=== PATIENT | female | born 1960 | race Caucasian/White ===

== ENCOUNTER 2019-09-06 01:44 | Observation (INO) | payer OTHER ==
--- NOTE | 2019-09-06 02:43 | PDOC ---
Attending Attestation - Resident Resident Name: Mark Anthony Aguilera - ED Attending Attestation I have performed the following: I have examined & evaluated the patient, The case was reviewed & discussed with the resident, I agree w/resident's findings & plan - HPI HPI: 09/06/19 02:34 see resident hpi - Physicial Exam PE: 09/06/19 02:35 agree with resident exam - Medical Decision Making 09/06/19 03:13 59-year-old female with history of coronary artery disease complaining of intermittent left-sided chest pressure as well as left posterior leg pain EKG shows no acute ST segment elevations Plan for chest x-ray, labs and admission to hospitalist service Patient will likely require lower extremity Doppler in the morning
[2019-09-06 02:49] VITALS: BMI 25.7
[2019-09-06] MEDS ORDERED: ASPIRIN 325 MG TABLET PO ONE (03:03)
[2019-09-06 03:08] LABS: BASO % 0.6 % (0-2.0); EOS % 1.9 % (0-4.5); HEMATOCRIT 40.5 % (32.4-45.2); HEMOGLOBIN 13.3 GM/dL (10.7-15.3); LYMPH % 32.4 % (8-40); MCH 28.2 pg (25.7-33.7); MCHC 32.8 g/dl (32.0-36.0); MEAN CELL VOLUME 85.9 fl (80-96); MONO % 5.5 % (3.8-10.2); NEUT % 59.6 % (42.8-82.8); PLATELET COUNT 486 K/MM3 (134-434); RBC 4.72 M/mm3 (3.60-5.2)
--- NOTE | 2019-09-06 03:11 | PDOC ---
History of Present Illness - General Chief Complaint: Chest Pain Stated Complaint: CHEST PAIN Time Seen by Provider: 09/06/19 02:33 History Source: Patient Exam Limitations: Language Barrier - History of Present Illness Initial Comments: History is limited bc patient speaks Kazakh - Kazakh speaking nurse used for translation Elisa Valencia is a 59 yo Kazakh speaking F w a pmh of CAD s/p stent, HTN and HIV who presents to the [facility] er with 2 weeks of left sided chest discomfort and left leg pain. She states that her chest pain feels both sharp and heavy. She states that her pain is worse whenever she does physical activity and is associated with radiation to her neck. She also endorses nausea when the pain comes on but denies any emesis. The patient states that the pain occasionally radiates down both her left arm and her left leg. She is also concerned because she has left leg pain whenever she performs any physical activity. She states that when she relaxes her legs don't hurt but if she walks too much her left leg becomes painful. PCP: Not on staff PSH: Stent Social Hx: Former smoker Allergies: NKA, NKDA Past History - Past Medical History Allergies/Adverse Reactions: Allergies Allergy/AdvReac Type Severity Reaction Status Date / Time No Known Allergies Allergy Verified 09/06/19 02:49 Home Medications: Ambulatory Orders levoFLOXacin [Levaquin -] 750 mg PO DAILY #7 tablet 07/08/15 Amoxicillin/Potassium Clav [Augmentin 875-125 Tablet] 1 each PO BID #14 tablet 07/20/15 - Immunization History Immunization Up to Date: Yes - Psycho Social/Smoking Cessation Hx Smoking Status: No Smoking History: Never smoked Number of Cigarettes Smoked Daily: 0 Information on smoking cessation initiated: No Hx Alcohol Use: No Drug/Substance Use Hx: No Substance Use Type: None Review of Systems - Review of Systems Able to Perform ROS?: Yes Comments:: CONSTITUTIONAL: Absent: fever, no chills, no fatigue EYES: Absent: visual changes ENT: Absent: ear pain, no sore throat CARDIOVASCULAR: Present: Chest pain Absent: no palpitations RESPIRATORY: Present: SOB Absent: cough GI: Present: Nausea Absent: abdominal pain, no vomiting, no constipation, no diarrhea GENITOURINARY: Absent: dysuria, no frequency, no hematuria MUSKULOSKELETAL: Present: Arthralgia Absent: back pain, no myalgia SKIN: Absent: rash NEURO: Absent: headache *Physical Exam - Vital Signs Last Vital Signs Temp Pulse Resp BP Pulse Ox 98.5 F 67 20 128/79 100 09/06/19 01:45 09/06/19 01:45 09/06/19 01:45 09/06/19 01:45 09/06/19 01:45 - Physical Exam GENERAL: Well-appearing, well-nourished. Mild distress. HEENT: Normocephalic, atraumatic. PERRL, EOM intact. CARDIOVASCULAR: Normal S1, S2. Regular rate and rhythm. PULMONARY: No evidence of respiratory distress. Lungs clear to auscultation bilaterally. No wheezing, rales or rhonchi. ABDOMEN: Soft, non-distended, non-tender. EXTREMITIES: The left leg is mildly tender to palpation. There is no calf tenderness or swelling. Normal ROM in all four extremities. No gross deformities. SKIN: Warm, dry. No rash NEUROLOGICAL: No focal neurological deficits. Heart Score/ECG Review - History History: Moderately suspicious - Electrocardiogram EKG: Normal - Age Age: 45-65 - Risk Factors Risk Factors Heart Score: Yes Hx Hypertension, Yes Smoking History, Yes Positive family hx of cardiac disease Based on the list above the patient has:: >/=3 risk factors or Hx atherosclerotic disease - Troponin Troponin: </= normal limit - Score Heart Score - Total: 4 - ECG Intrepretation Rhythm: Regular Rhythm - Lena Lena: Normal - P and WI Prominent R with upright T in V1 (true posterior IA): No Comment:: WI 172 - QRS Poor R Wave Progression: No Q Wave Present: No Comment:: QRS 64 - ST and T Early Repolarization: No Non Specific ST-T Wave changes: No Flattened T Waves: No Prolonged Q-T Interval: No Comment:: QTc - 406 - ECG Impressions Normal ECG: Yes Non-specific ST Elevation: No Ischemic Changes: No Bradycardia: No ED Treatment Course - LABORATORY CBC & Chemistry Diagram: 09/06/19 02:50 09/06/19 02:50 - ADDITIONAL ORDERS Additional order review: 09/06/19 02:50 RBC 4.72 MCV 85.9 MCHC 32.8 RDW 15.0 MPV 8.0 Neutrophils % 59.6 Lymphocytes % 32.4 Monocytes % 5.5 Eosinophils % 1.9 Basophils % 0.6 Medical Decision Making - Medical Decision Making Elisa Valencia is a 59 yo Kazakh speaking F w a pmh of CAD s/p stent, HTN and HIV who presents to the [facility] er with 2 weeks of left sided chest discomfort and left leg pain. She states that her chest pain feels both sharp and heavy. She states that her pain is worse whenever she does physical activity and is associated with radiation to her neck. She also endorses nausea when the pain comes on but denies any emesis. The patient states that the pain occasionally radiates down both her left arm and her left leg. She is also concerned because she has left leg pain whenever she performs any physical activity. She states that when she relaxes her legs don't hurt but if she walks too much her left leg becomes painful. Vital Signs Temp Pulse Resp BP Pulse Ox 98.5 F 67 20 128/79 100 09/06/19 01:45 09/06/19 01:45 09/06/19 01:45 09/06/19 01:45 09/06/19 01:45 DDx IBNLT: ACS/IA, arrythmia, electrolyte/metabolic disturbance, DVT/PE, Pneumothorax, PNA MDM: Patient endorses chest pain w exertion, radiation, assocation with nausea and has a HEART score of 4 Plan: Labs + Dimer, CXR, EKG, Admit Tele Obs for chest pain Labs: Dimer normal. Labs otherwise unremarkable and WNL. CXR: No acute pathology Disposition: Tele Obs for chest pain workup Discharge - Discharge Information Problems reviewed: Yes Clinical Impression/Diagnosis: Chest pain Qualifiers: Chest pain type: unspecified Qualified Code(s): R07.9 - Chest pain, unspecified Condition: Stable - Admission Yes - Follow up/Referral - Patient Discharge Instructions - Post Discharge Activity
[2019-09-06 03:22] LABS: INR 0.98 (0.83-1.09); PROTHROMBIN TIME (PATIENT) 11.6 SEC (9.7-13.0)
[2019-09-06 03:31] LABS: ALBUMIN 3.3 g/dl (3.4-5.0); BILIRUBIN,TOTAL 0.2 mg/dL (0.2-1); BLOOD UREA NITROGEN 13.3 mg/dL (7-18); CALCIUM 7.7 mg/dL (8.5-10.1); CREATININE 0.5 mg/dL (0.55-1.3); POTASSIUM 3.7 mmol/L (3.5-5.1)
[2019-09-06] MEDS ORDERED: ASPIRIN 325 MG ENTERIC COATED TABLET (FP) ONE (04:01)
--- NOTE | 2019-09-06 09:04 | HP ---
CHIEF COMPLAINT: Left leg Pain x 2 weeks and chest pain x 1 day. PCP: Jesus HISTORY OF PRESENT ILLNESS: Pt is a 59 y/o F with a significant past medical history of CAD s/p 1 stent, HIV (on Biktarvy), and HTN who presented to [facility] due to left lower extremity pain as well as chest pain x 1 day duration. Leg pain is worse with activity and relieved with rest. Pain spans from left mid thigh to her calf. Pain is reproducible with deep palpation. Chest pain commenced 1 day ago, pain is described as sharp and radiates to the left side of her neck. Pain is not related to inspiration and is not reproducible with deep palpation. Pt states she has experienced these symptoms before but did not seek professional medical treatment. Denies shortness of breath, N/V, or LOC. ER course was notable for: (1) 1st Trop negative (2) EKG no ST-T wave abnormalities (3) Allergies No Known Allergies Allergy (Verified 09/06/19 02:49) HOME MEDICATIONS: Home Medications Medication Instructions Recorded Aspirin [ASA -] 81 mg PO DAILY 09/06/19 Bictegrav/Emtricit/Tenofov Ala 1 each PO 09/06/19 [Biktarvy 50-200-25 mg Tablet] Ergocalciferol (Vitamin D2) 50,000 unit PO 09/06/19 [Vitamin D2] Metoprolol Succinate 25 mg PO 09/06/19 Pravastatin Sodium [Pravachol (Nf)] 40 mg PO 09/06/19 REVIEW OF SYSTEMS CONSTITUTIONAL: Absent: fever, chills, diaphoresis, generalized weakness, malaise, loss of appetite, weight change HEENT: Absent: rhinorrhea, nasal congestion, throat pain, throat swelling, difficulty swallowing, mouth swelling, ear pain, eye pain, visual changes CARDIOVASCULAR: PRESENT chest pain RESPIRATORY: Absent: cough, shortness of breath, dyspnea with exertion, orthopnea, wheezing, stridor, hemoptysis GASTROINTESTINAL: Absent: abdominal pain, abdominal distension, nausea, vomiting, diarrhea, constipation, melena, hematochezia GENITOURINARY: Absent: dysuria, frequency, urgency, hesitancy, hematuria, flank pain, genital pain MUSCULOSKELETAL: Absent: myalgia, arthralgia, joint swelling, back pain, neck pain SKIN: Absent: rash, itching, pallor HEMATOLOGIC/IMMUNOLOGIC: Absent: easy bleeding, easy bruising, lymphadenopathy, frequent infections ENDOCRINE: Absent: unexplained weight gain, unexplained weight loss, heat intolerance, cold intolerance NEUROLOGIC: Absent: headache, focal weakness or paresthesias, dizziness, unsteady gait, seizure, mental status changes, bladder or bowel incontinence PSYCHIATRIC: Absent: anxiety, depression, suicidal or homicidal ideation, hallucinations. PHYSICAL EXAMINATION Vital Signs - 24 hr 09/06/19 09/06/19 01:45 06:34 Temperature 98.5 F Pulse Rate 67 Pulse Rate [ 67 Left Apical] Respiratory 20 19 Rate Blood Pressure 128/79 Blood Pressure 128/74 [Right Arm] O2 Sat by Pulse 100 100 Oximetry (%) GENERAL: NAD HEAD: AT/NC EYES: EOMI Sclera Clear EARS, NOSE, THROAT: MMM NECK: Spple LUNGS: CTA /l HEART: RRR, S1S2. Chest wall not tender to deep palpation ABDOMEN: Soft, NDNT MUSCULOSKELETAL: FROM LOWER EXTREMITIES: No CCE NEUROLOGICAL: Cranial nerves II-XII intact. PSYCHIATRIC: Cooperative. Good eye contact. Appropriate mood and affect. SKIN: Warm, dry, normal turgor, no rashes or lesions noted, normal capillary refill. Laboratory Results - last 24 hr 09/06/19 09/06/19 09/06/19 02:50 02:50 02:50 WBC 7.0 RBC 4.72 Hgb 13.3 Hct 40.5 MCV 85.9 MCH 28.2 MCHC 32.8 RDW 15.0 Plt Count 486 H D MPV 8.0 Absolute Neuts (auto) 4.2 Neutrophils % 59.6 Lymphocytes % 32.4 Monocytes % 5.5 Eosinophils % 1.9 Basophils % 0.6 Nucleated RBC % 0 PT with INR INR PTT (Actin FS) 34.0 D-Dimer Sodium Potassium Chloride Carbon Dioxide Anion Gap BUN Creatinine Est GFR (CKD-EPI)AfAm Est GFR (CKD-EPI)NonAf Random Glucose Calcium Total Bilirubin AST ALT Alkaline Phosphatase Creatine Kinase 72 Troponin I < 0.02 Total Protein Albumin 09/06/19 09/06/19 09/06/19 02:50 02:50 03:00 WBC RBC Hgb Hct MCV MCH MCHC RDW Plt Count MPV Absolute Neuts (auto) Neutrophils % Lymphocytes % Monocytes % Eosinophils % Basophils % Nucleated RBC % PT with INR 11.60 INR 0.98 PTT (Actin FS) D-Dimer 342 Sodium 144 Potassium 3.7 Chloride 112 H Carbon Dioxide 25 Anion Gap 7 L BUN 13.3 Creatinine 0.5 L Est GFR (CKD-EPI)AfAm 124.52 Est GFR (CKD-EPI)NonAf 107.44 Random Glucose 75 Calcium 7.7 L Total Bilirubin 0.2 AST 19 ALT 19 Alkaline Phosphatase 89 Creatine Kinase Troponin I Total Protein 7.0 Albumin 3.3 L ASSESSMENT/PLAN: Pt is a 59 y/o F with a significant past medical history of CAD s/p 1 stent, HIV (on Biktarvy), and HTN who presented to [facility] due to left lower extremity pain as well as chest pain x 1 day duration. #Chest Pain-r/o ACS -EKG unremarkable. -Trop negative. Will trend -Cardiology Consult -Echocardiogram to assess for any wall motion abnormalities -Tele monitoring -Nuclear Stress Test -Will resume home Metoprolol, ASA and Pravastatin #HIV -Resume Biktarvy #Leg lower extremity pain -Venous Duplex of left lower extremity to assess for any DVT #FEN No standing Fluids Monitor Electrolytes Sodium Controlled Diet #DVT ppx: HEP Sq TID #Dispo: Tele Obs Visit type - Emergency Visit Emergency Visit: Yes ED Registration Date: 09/06/19 Care time: The patient presented to the Emergency Department on the above date and was hospitalized for further evaluation of their emergent condition. - New Patient This patient is new to me today: Yes Date on this admission: 09/06/19 - Critical Care Critical Care patient: No ATTENDING PHYSICIAN STATEMENT I saw and evaluated the patient. I reviewed the resident's note and discussed the case with the resident. I agree with the resident's findings and plan as documented. SUBJECTIVE: OBJECTIVE: ASSESSMENT AND PLAN:
[2019-09-06] MEDS ORDERED: HEPARIN NA (PORCINE) 5,000 UNITS/ML 1ML VIAL ONE (09:40)
[2019-09-06] MEDS ORDERED: ASPIRIN 81 MG CHEWABLE TABLETS ONE (09:40)
[2019-09-06] MEDS ORDERED: ATORVASTATIN CA 10 MG TABLET (FP) ONE (09:40)
--- NOTE | 2019-09-06 09:57 | EKG ---
Test Reason : Blood Pressure : / mmHG Vent. Rate : 068 BPM Atrial Rate : 068 BPM P-R Int : 172 ms QRS Dur : 064 ms QT Int : 382 ms P-R-T Axes : 067 019 045 degrees QTc Int : 406 ms NORMAL SINUS RHYTHM NORMAL ECG WHEN COMPARED WITH ECG OF 15-MAY-2014 10:08, NO SIGNIFICANT CHANGE WAS FOUND Confirmed by LAMAR PIEDRA MD ([id number]) on 09/06/2019 9:56:59 AM Referred By: Confirmed By:LAMAR PIEDRA MD
[2019-09-06] MEDS ORDERED: BICTEGRAV/EMTRICIT/TENOFOV (BIKTARVY) 50-200-25 MG TABLET PO SCH (10:00)
[2019-09-06] MEDS ORDERED: HEPARIN NA (PORCINE) 5,000 UNITS/ML 1ML VIAL SQ SCH (10:00)
[2019-09-06] MEDS ORDERED: ASPIRIN 81 MG CHEWABLE TABLETS PO SCH (10:00)
[2019-09-06] MEDS ORDERED: metoPROLOL SUCCINATE 25 MG TAB.SR.24H (FP) PO SCH (10:00)
[2019-09-06] MEDS ORDERED: REGADENOSON 0.4 MG/5 ML PRE-FILLED SYRINGE IVPUSH ONE (10:15)
--- NOTE | 2019-09-06 15:05 | ECHO ---
Name: MARICEL MARTINEZ Exam:Adult Echocardiogram Study Date: 09/06/2019 10:50 AM Age: 59 yrs Reason For Study: lvf Height: 62 in Weight: 140 lb BSA: 1.6 m2 MMode/2D Measurements & Calculations IVSd: 0.85 cm Ao root diam: 2.4 cm LVIDd: 4.3 cm LA dimension: 2.3 cm LVIDs: 2.6 cm LVPWd: 0.78 cm EDV(Teich): 83.3 ml LVOT diam: 2.0 cm ESV(Teich): 25.4 ml LAV (MOD-bp): 31.7 ml Doppler Measurements & Calculations MV E max raymond: 81.5 cm/sec Ao V2 max: 108.6 cm/sec MV A max raymond: 71.8 cm/sec Ao max P.7 mmHg MV E/A: 1.1 MV dec time: 0.25 sec LUKASZ(V,D): 2.7 cm2 LV V1 max P.5 mmHg MR max raymond: 432.9 cm/sec LV V1 max: 94.1 cm/sec MR max P.9 mmHg TR max raymond: 230.8 cm/sec PA V2 max: 81.4 cm/sec TR max P.4 mmHg PA max P.7 mmHg Med Peak E' Raymond: 7.7 cm/sec PI Vmax: 112.7 cm/sec Med E/e': 10.6 Lat Peak E' Raymond: 11.1 cm/sec Lat E/e': 7.3 Procedure A two-dimensional transthoracic echocardiogram with color flow and Doppler was performed. Left Ventricle The left ventricular size, thickness and function are normal. The left ventricular ejection fraction is normal. Left Ventricular Filling pattern is normal for age. The left ventricular wall motion is durga l. Right Ventricle The right ventricle is normal in size and function. Atria Normal left and right atrial size and function. Mitral Valve There is mild mitral valve thickening. There is no mitral valve stenosis. There is trace to mild mitr al regurgitation. Tricuspid Valve There is mild tricuspid valve thickening. There is no tricuspid stenosis. There is moderate tricuspid regurgitation. Right ventricular systolic pressure is normal. Aortic Valve The aortic valve is normal in structure and function. No hemodynamically significant valvular aortic stenosis. No aortic regurgitation is present. Pulmonic Valve The pulmonic valve is not well visualized. There is no pulmonic valvular stenosis. Mild pulmonic valv ular regurgitation. Great Vessels The aortic root is normal size. Pericardium/Pleura There is no pericardial effusion. Interpretation Summary The left ventricular size, thickness and function are normal The left ventricular ejection fraction is normal. The left ventricular wall motion is normal. There is moderate tricuspid regurgitation. Right ventricular systolic pressure is normal. Mild pulmonic valvular regurgitation. Left Ventricular Filling pattern is normal for age. There is trace to mild mitral regurgitation. MD Chris Desai 09/06/2019 03:04 PM
--- NOTE | 2019-09-06 16:06 | CON.CARD ---
Consult Consult Specialty:: cardiology Reason for Consultation:: chest pain - History of Present Illness History of Present Illness: 59 F HIV with back pain and knee pain. Mild chest pain was noted. ECG and cardiac enzymes were negative. She already had echo and stress and results are normal . Feeling better. - History Source History Provided By: Patient Limitations to Obtaining History: No Limitations - Alcohol/Substance Use Hx Alcohol Use: No - Smoking History Smoking history: Never smoked Aproximately how many cigarettes per day: 0 Home Medications - Allergies Allergies/Adverse Reactions: Allergies Allergy/AdvReac Type Severity Reaction Status Date / Time No Known Allergies Allergy Verified 09/06/19 02:49 - Home Medications Home Medications: Ambulatory Orders Aspirin [ASA -] 81 mg PO DAILY 09/06/19 Bictegrav/Emtricit/Tenofov Ala [Biktarvy 50-200-25 mg Tablet] 1 each PO Ergocalciferol (Vitamin D2) [Vitamin D2] 50,000 unit PO 09/06/19 Metoprolol Succinate 25 mg PO 09/06/19 Pravastatin Sodium [Pravachol (Nf)] 40 mg PO 09/06/19 Review of Systems - Review of Systems Constitutional: reports: No Symptoms Eyes: reports: No Symptoms HENT: reports: No Symptoms Neck: reports: No Symptoms Cardiovascular: reports: No Symptoms Respiratory: reports: No Symptoms Gastrointestinal: reports: No Symptoms Genitourinary: reports: No Symptoms Breasts: reports: No Symptoms Reported Musculoskeletal: reports: No Symptoms Vital Signs: Vital Signs Temperature 98.5 F 09/06/19 01:45 Pulse Rate 67 09/06/19 06:34 Respiratory Rate 19 09/06/19 06:34 Blood Pressure 128/74 09/06/19 06:34 O2 Sat by Pulse Oximetry (%) 100 09/06/19 06:34 Constitutional: Yes: Well Nourished, No Distress Eyes: Yes: Conjunctiva Clear, EOM Intact HENT: Yes: Atraumatic, Normocephalic Neck: Yes: Supple, Trachea Midline Respiratory: Yes: Regular, CTA Bilaterally Gastrointestinal: Yes: Normal Bowel Sounds, Soft Cardiovascular: Yes: Regular Rate and Rhythm JVD: No Carotid Bruit: No PMI: Non-Displaced Heart Sounds: Yes: S1, S2 Murmur: No: Systolic Murmur, Diastolic Murmur Edema: No - Other Data Labs, Other Data: CBC, BMP 09/06/19 02:50 09/06/19 02:50 INR, PTT INR 0.98 (0.83-1.09) 09/06/19 02:50 Troponin, BNP 09/06/19 09/06/19 02:50 10:12 Troponin I < 0.02 < 0.02 Troponin, BNP 09/06/19 09/06/19 02:50 10:12 Troponin I < 0.02 < 0.[address] T change.s Echo: Report Reviewed Problem List - Problems (1) Chest pain Code(s): R07.9 - CHEST PAIN, UNSPECIFIED Qualifiers: Chest pain type: unspecified Qualified Code(s): R07.9 - Chest pain, unspecified Assessment/Plan Atypical CP with negative CV workup. Pt feels better and wants to go home. Consider discharge.
[2019-09-06 17:13] VITALS: BP 127/72; PULSE 71; TEMP 98.6
--- NOTE | 2019-09-06 19:21 | PN ---
Teaching Attending Note Name of Resident: Isidro Marquez ATTENDING PHYSICIAN STATEMENT I reviewed the resident's note and discussed the case with the resident. I agree with the resident's findings and plan as documented. SUBJECTIVE: Patient left the hospital without being seen and examined by me. OBJECTIVE: Vital Signs Temperature 98.6 F 09/06/19 17:12 Pulse Rate 71 09/06/19 17:12 Respiratory Rate 18 09/06/19 17:12 Blood Pressure 127/72 09/06/19 17:12 O2 Sat by Pulse Oximetry (%) 99 09/06/19 17:12 CBCD WBC 7.0 K/mm3 (4.0-10.0) 09/06/19 02:50 RBC 4.72 M/mm3 (3.60-5.2) 09/06/19 02:50 Hgb 13.3 GM/dL (10.7-15.3) 09/06/19 02:50 Hct 40.5 % (32.4-45.2) 09/06/19 02:50 MCV 85.9 fl (80-96) 09/06/19 02:50 MCHC 32.8 g/dl (32.0-36.0) 09/06/19 02:50 RDW 15.0 % (11.6-15.6) 09/06/19 02:50 Plt Count 486 K/MM3 (134-434) H D 09/06/19 02:50 MPV 8.0 fl (7.5-11.1) 09/06/19 02:50 CMP Sodium 144 mmol/L (136-145) 09/06/19 02:50 Potassium 3.7 mmol/L (3.5-5.1) 09/06/19 02:50 Chloride 112 mmol/L (98-107) H 09/06/19 02:50 Carbon Dioxide 25 mmol/L (21-32) 09/06/19 02:50 Anion Gap 7 MMOL/L (8-16) L 09/06/19 02:50 BUN 13.3 mg/dL (7-18) 09/06/19 02:50 Creatinine 0.5 mg/dL (0.55-1.3) L 09/06/19 02:50 Random Glucose 75 mg/dL (74-106) 09/06/19 02:50 Calcium 7.7 mg/dL (8.5-10.1) L 09/06/19 02:50 Total Bilirubin 0.2 mg/dL (0.2-1) 09/06/19 02:50 AST 19 U/L (15-37) 09/06/19 02:50 ALT 19 U/L (13-61) 09/06/19 02:50 Alkaline Phosphatase 89 U/L (45-117) 09/06/19 02:50 Total Protein 7.0 g/dl (6.4-8.2) 09/06/19 02:50 Albumin 3.3 g/dl (3.4-5.0) L 09/06/19 02:50 CARDIAC ENZYMES Creatine Kinase 72 U/L (26-192) 09/06/19 02:50 Troponin I < 0.02 ng/ml (0.00-0.05) 09/06/19 10:12 Home Medications Medication Instructions Recorded Aspirin [ASA -] 81 mg PO DAILY 09/06/19 Bictegrav/Emtricit/Tenofov Ala 1 each PO 09/06/19 [Biktarvy 50-200-25 mg Tablet] Ergocalciferol (Vitamin D2) 50,000 unit PO 09/06/19 [Vitamin D2] Metoprolol Succinate 25 mg PO 09/06/19 Pravastatin Sodium [Pravachol (Nf)] 40 mg PO 09/06/19 ASSESSMENT AND PLAN: #acute chest Pain-r/o ACS, 2 sets of troponin is negative , EKG NSR rate of 68, no ST elevation or depression . 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
--- NOTE | 2019-09-06 19:42 | DS ---
Physical Exam: SUBJECTIVE: Patient seen and examined OBJECTIVE: Vital Signs Period Temp Pulse Resp BP Sys/Zhang Pulse Ox Last 24 Hr 98.5 F-98.6 F 67-71 18-20 127-128/72-79 99-100 PHYSICAL EXAM GENERAL: The patient is awake, alert, and fully oriented, in no acute distress. HEAD: Normal with no signs of trauma. EYES: PERRL, extraocular movements intact, sclera anicteric, conjunctiva clear. ENT: Ears normal, nares patent, oropharynx clear without exudates, moist mucous membranes. NECK: Trachea midline, full range of motion, supple. LUNGS: Breath sounds equal, clear to auscultation bilaterally, no wheezes, no crackles, no accessory muscle use. HEART: Regular rate and rhythm, S1, S2 without murmur, rub or gallop. ABDOMEN: Soft, nontender, nondistended, normoactive bowel sounds, no guarding, no rebound, no hepatosplenomegaly, no masses. EXTREMITIES: 2+ pulses, warm, well-perfused, no edema. NEUROLOGICAL: Cranial nerves II through XII grossly intact. Normal speech, gait not observed. PSYCH: Normal mood, normal affect. SKIN: Warm, dry, normal turgor, no rashes or lesions noted. LABS Laboratory Results - last 24 hr 09/06/19 09/06/19 09/06/19 02:50 02:50 02:50 WBC 7.0 RBC 4.72 Hgb 13.3 Hct 40.5 MCV 85.9 MCH 28.2 MCHC 32.8 RDW 15.0 Plt Count 486 H D MPV 8.0 Absolute Neuts (auto) 4.2 Neutrophils % 59.6 Lymphocytes % 32.4 Monocytes % 5.5 Eosinophils % 1.9 Basophils % 0.6 Nucleated RBC % 0 PT with INR INR PTT (Actin FS) 34.0 D-Dimer Sodium Potassium Chloride Carbon Dioxide Anion Gap BUN Creatinine Est GFR (CKD-EPI)AfAm Est GFR (CKD-EPI)NonAf Random Glucose Calcium Total Bilirubin AST ALT Alkaline Phosphatase Creatine Kinase 72 Troponin I < 0.02 Total Protein Albumin 09/06/19 09/06/19 09/06/19 02:50 02:50 03:00 WBC RBC Hgb Hct MCV MCH MCHC RDW Plt Count MPV Absolute Neuts (auto) Neutrophils % Lymphocytes % Monocytes % Eosinophils % Basophils % Nucleated RBC % PT with INR 11.60 INR 0.98 PTT (Actin FS) D-Dimer 342 Sodium 144 Potassium 3.7 Chloride 112 H Carbon Dioxide 25 Anion Gap 7 L BUN 13.3 Creatinine 0.5 L Est GFR (CKD-EPI)AfAm 124.52 Est GFR (CKD-EPI)NonAf 107.44 Random Glucose 75 Calcium 7.7 L Total Bilirubin 0.2 AST 19 ALT 19 Alkaline Phosphatase 89 Creatine Kinase Troponin I Total Protein 7.0 Albumin 3.3 L 09/06/19 10:12 WBC RBC Hgb Hct MCV MCH MCHC RDW Plt Count MPV Absolute Neuts (auto) Neutrophils % Lymphocytes % Monocytes % Eosinophils % Basophils % Nucleated RBC % PT with INR INR PTT (Actin FS) D-Dimer Sodium Potassium Chloride Carbon Dioxide Anion Gap BUN Creatinine Est GFR (CKD-EPI)AfAm Est GFR (CKD-EPI)NonAf Random Glucose Calcium Total Bilirubin AST ALT Alkaline Phosphatase Creatine Kinase Troponin I < 0.02 Total Protein Albumin HOSPITAL COURSE: Date of Admission:09/06/19 Date of Discharge: 09/06/19 Discharge Summary Problems reviewed: Yes Reason For Visit: CHEST PAIN Condition: Stable - Instructions Referrals: Judd Restrepo MD [Staff Physician] - 1 Week Disposition: ELOPED - Home Medications Comprehensive Discharge Medication List: Ambulatory Orders Aspirin [ASA -] 81 mg PO DAILY 09/06/19 Bictegrav/Emtricit/Tenofov Ala [Biktarvy 50-200-25 mg Tablet] 1 each PO Ergocalciferol (Vitamin D2) [Vitamin D2] 50,000 unit PO 09/06/19 Metoprolol Succinate 25 mg PO 09/06/19 Pravastatin Sodium [Pravachol (Nf)] 40 mg PO 09/06/19
[2019-09-06] MEDS ORDERED: ATORVASTATIN CA 10 MG TABLET (FP) PO SCH (22:00)
--- NOTE | 2019-09-07 08:25 | DS ---
Physical Exam: SUBJECTIVE: Patient seen and examined OBJECTIVE: Vital Signs Period Temp Pulse Resp BP Sys/Zhang Pulse Ox Last 24 Hr 98.6 F 71 18 127/72 99 PHYSICAL EXAM GENERAL: The patient is awake, alert, and fully oriented, in no acute distress. HEAD: Normal with no signs of trauma. EYES: PERRL, extraocular movements intact, sclera anicteric, conjunctiva clear. ENT: Ears normal, nares patent, oropharynx clear without exudates, moist mucous membranes. NECK: Trachea midline, full range of motion, supple. LUNGS: Breath sounds equal, clear to auscultation bilaterally, no wheezes, no crackles, no accessory muscle use. HEART: Regular rate and rhythm, S1, S2 without murmur, rub or gallop. ABDOMEN: Soft, nontender, nondistended, normoactive bowel sounds, no guarding, no rebound, no hepatosplenomegaly, no masses. EXTREMITIES: 2+ pulses, warm, well-perfused, no edema. NEUROLOGICAL: Cranial nerves II through XII grossly intact. Normal speech, gait not observed. PSYCH: Normal mood, normal affect. SKIN: Warm, dry, normal turgor, no rashes or lesions noted. LABS Laboratory Results - last 24 hr 09/06/19 10:12 Troponin I < 0.02 HOSPITAL COURSE: Date of Admission:09/06/19 Date of Discharge: 09/07/19 Discharge Summary Problems reviewed: Yes Reason For Visit: CHEST PAIN Condition: Stable - Instructions Referrals: Judd Restrepo MD [Staff Physician] - 1 Week Disposition: ELOPED - Home Medications Comprehensive Discharge Medication List: Ambulatory Orders Aspirin [ASA -] 81 mg PO DAILY 09/06/19 Bictegrav/Emtricit/Tenofov Ala [Biktarvy 50-200-25 mg Tablet] 1 each PO Ergocalciferol (Vitamin D2) [Vitamin D2] 50,000 unit PO 09/06/19 Metoprolol Succinate 25 mg PO 09/06/19 Pravastatin Sodium [Pravachol (Nf)] 40 mg PO 09/06/19 ATTENDING PHYSICIAN STATEMENT I saw and evaluated the patient. I reviewed the resident's note and discussed the case with the resident. I agree with the resident's findings and plan as documented. SUBJECTIVE: OBJECTIVE: ASSESSMENT AND PLAN:
== END 2019-09-06 17:15 | disposition left against medical advice (07) ==
LOC: JER 01:44 → JERBED 05:08
PROVIDERS: ADMIT Internal Medicine; ATTEND Internal Medicine
PROC: 3E013GC Introduction of Other Therapeutic Substance into Subcutaneous Tissue, Percutaneous Approach (ICD-10-PCS; principal; 2019-09-06)
DX: R07.9 Chest pain, unspecified (principal); I25.10 Atherosclerotic heart disease of native coronary artery without angina pectoris; I10 Essential (primary) hypertension; Z95.5 Presence of coronary angioplasty implant and graft; Z21 Asymptomatic human immunodeficiency virus [HIV] infection status; Z87.891 Personal history of nicotine dependence; Z82.49 Family history of ischemic heart disease and other diseases of the circulatory system
CPT/HCPCS: 36415; 71045-TC-FY; 78452-TC; 80053; 82550; 84484; 85025; 85379; 85610; 85730; 93005; 93010; 93017; 93306-TC; 93971-TC; 96372; 99285-25; A9502; G0378; J1644

== ENCOUNTER 2022-04-23 18:51 | Emergency (ER) | payer OTHER ==
[2022-04-23 19:12] VITALS: BMI 24.7
[2022-04-23 21:18] LABS: HEMATOCRIT 39.9 % (32.4-45.2); HEMOGLOBIN 13.1 GM/dL (10.7-15.3); MCH 28.1 pg (25.7-33.7); MCHC 32.9 g/dl (32.0-36.0); MEAN CELL VOLUME 85.4 fl (80-96); MEAN PLT VOLUME 7.7 fl (7.5-11.1); PLATELET COUNT 581 10^3/uL (134-434); RBC 4.68 M/mm3 (3.60-5.2); RDW 14.7 % (11.6-15.6); WHITE BLOOD COUNT 7.4 K/mm3 (4.0-10.0)
[2022-04-23 21:34] LABS: ALBUMIN 4.2 g/dl (3.4-5.0); BLOOD UREA NITROGEN 10.4 mg/dL (7-18); CALCIUM 9.1 mg/dL (8.5-10.1); MAGNESIUM 2.5 mg/dL (1.8-2.4)
[2022-04-23 21:37] LABS: CREATININE 0.7 mg/dL (0.55-1.3)
[2022-04-23 21:39] LABS: BILIRUBIN,TOTAL 0.4 mg/dL (0.2-1); TOT PROT 8.4 g/dl (6.4-8.2)
[2022-04-24 02:14] VITALS: BP 109/66; PULSE 61; TEMP 97.9
== END 2022-04-24 02:28 | disposition home or self-care (01) ==
LOC: JER 18:51
DX: R07.9 Chest pain, unspecified (principal)
CPT/HCPCS: 36415; 71046-TC-FY; 80053; 83735; 84484; 85027; 93005; 93010; 99284-25